=== PATIENT | male | born 1960 | race Caucasian/White ===

== ENCOUNTER 2019-05-12 23:03 | Emergency (ER) | payer OTHER ==
[~2019-05-12] VITALS: Ht 170.2 cm; Wt 90.9 kg
[2019-05-12] MEDS ORDERED: magnesium hydroxide 30ml (MOM) UD suspension PO ONE (23:20)
[2019-05-12] MEDS ORDERED: LIDOcaine Viscous 15ml cup MM PRN (23:20)
[2019-05-12] MEDS ORDERED: LORazepam 2 mg/ml vial IV ONE (23:45)
[2019-05-12 23:55] LABS: TROPONIN I < 0.04 NG/ML (0.0-0.05)
[2019-05-13 00:09] LABS: ALANINE AMINOTRANSFERASE 23 U/L (12-78); ALBUMIN 3.7 G/DL (3.4-5.0); ALKALINE PHOSPHATASE 76 IU/L (46-116); ANION GAP 12 (8-16); ASPARTATE AMINO TRANSFERASE 21 U/L (10-37); BILIRUBIN,TOTAL 0.4 MG/DL (0.1-1.0); BLOOD UREA NITROGEN 15 MG/DL (7-18); BUN/CREATININE RATIO 13.9 (5.4-32.0); CALCIUM 8.5 MG/DL (8.5-10.1); CHLORIDE 106 MMOL/L (99-107); CREATININE 1.08 MG/DL (0.60-1.10); GLUCOSE 136 MG/DL (70-104); LIPASE 65 U/L (73-393); MAGNESIUM 1.5 MG/DL (1.5-2.4); POTASSIUM 3.5 MMOL/L (3.5-5.1); SODIUM 144 MMOL/L (135-145); TOTAL CARBON DIOXIDE 26.5 MMOL/L (24-32); TOTAL PROTEIN 7.3 G/DL (6.4-8.2); eGFR 70 ML/MIN
[2019-05-13 00:13] LABS: ETHANOL < 0.010 GM/DL (0.0-0.010)
[2019-05-13 00:42] LABS: BASOPHILS # (AUTO) 0.1 X10'3 (0-0.2); BASOPHILS % (AUTO) 0.5 % (0-1); EOSINOPHILS # (AUTO) 0.3 X10'3 (0-0.9); EOSINOPHILS % (AUTO) 2.1 % (0-6); HEMATOCRIT 42.4 % (42.0-52.0); HEMOGLOBIN 14.8 g/dl (14.0-17.9); LYMPHOCYTES # (AUTO) 1.9 X10'3 (1.1-4.8); LYMPHOCYTES % (AUTO) 11.6 % (21-51); MEAN CORPUSCULAR HEMOGLOBIN 30.5 PG (27.0-31.0); MEAN CORPUSCULAR VOLUME 87.1 FL (78-98); MEAN PLATELET VOLUME 8.5 FL (7.4-10.4); MONOCYTES % (AUTO) 6.1 % (2-12); NEUTROPHILS % (AUTO) 79.7 % (42-75); PLATELET COUNT 249 X10'3 (140-440); RED BLOOD COUNT 4.87 X10'6 (4.70-6.10); RED CELL DISTRIBUTION WIDTH 13.2 % (11.5-14.5); WHITE BLOOD COUNT 16.3 X10'3 (4.5-11.0)
[2019-05-13 00:58] LABS: URINE AMPHETAMINE SCREEN NEGATIVE (Neg); URINE BARBITUATE SCREEN NEGATIVE (Neg); URINE BENZODIAZEPINES SCREEN NEGATIVE (Neg); URINE CANNABINOID SCREEN NEGATIVE (Neg); URINE COCAINE SCREEN NEGATIVE (Neg); URINE METHADONE SCREEN NEGATIVE (Neg); URINE OPIATE SCREEN NEGATIVE (Neg); URINE PHENCYCLIDINE SCREEN NEGATIVE (Neg)
--- NOTE | 2019-05-13 01:16 | NUR ---
DR LYN UPDATED THAT PT REPORTING RELIEF FROM HIS NAUSEA AND SOME RELIEF OF THE CP, HOWEVER STATES WHEN HE COUGHS, THE PAIN IS SIGNIFICANT TO HIS MED CHEST. TO ORDER XRAY.
[2019-05-13 02:02] VITALS: BP 119/74
== END 2019-05-13 02:57 | disposition home or self-care (01) ==
LOC: ER 23:04
DX: K21.9 Gastro-esophageal reflux disease without esophagitis (principal); F10.99 Alcohol use, unspecified with unspecified alcohol-induced disorder; Z90.49 Acquired absence of other specified parts of digestive tract; Y90.9 Presence of alcohol in blood, level not specified
CPT/HCPCS: 36415; 71045; 80053; 80305; 80320; 83690; 83735; 84484; 85025; 93005; 96374; 99284; J2060